=== PATIENT | male | born 1990 | race Caucasian/White ===

== ENCOUNTER 2016-10-05 09:30 | Emergency (ER) | payer BC, OTHER ==
[2016-10-05 09:45] VITALS: BP 128/54
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
[2016-10-05] MEDS ORDERED: methylPREDNISolone Acetate 80 MG/ML SDV IM ONE (09:47)
== END 2016-10-05 10:20 | disposition home or self-care (01) ==
LOC: LL.ED 09:30
DX: S30.0XXA Contusion of lower back and pelvis, initial encounter (principal); K21.9 Gastro-esophageal reflux disease without esophagitis; F17.210 Nicotine dependence, cigarettes, uncomplicated; Z71.6 Tobacco abuse counseling; V89.2XXA Person injured in unspecified motor-vehicle accident, traffic, initial encounter; Y93.89 Activity, other specified; Y92.009 Unspecified place in unspecified non-institutional (private) residence as the place of occurrence of the external cause
CPT/HCPCS: 96372; 99283; J1040

== ENCOUNTER 2017-10-26 19:21 | Emergency (ER) | payer BC, OTHER ==
[2017-10-26 19:25] VITALS: BP 146/77
[2017-10-26] MEDS ORDERED: Sodium Chloride 0.9% 1,000 ML IV SCH (19:45)
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
[2017-10-26] MEDS ORDERED: HYDROmorphone 1 MG/ML Syringe IVPUSH ONE (19:52)
[2017-10-26] MEDS ORDERED: Iopamidol 612 MG/ML 100 ML Bottle IVPUSH ONE (19:59)
[2017-10-26 20:01] LABS: CHLORIDE,CL 106 mmol/L (98-107); SODIUM,NA 141 mmol/L (136-145)
[2017-10-26] MEDS ORDERED: Pantoprazole 40 MG Vial IVPUSH ONE (20:07)
[2017-10-26] MEDS: Sodium Chloride 0.9% 10 ML Syringe FLUSH PRN ×3 (20:10→20:14)
== END 2017-10-26 21:45 | disposition home or self-care (01) ==
LOC: LL.ED 19:21
DX: K81.9 Cholecystitis, unspecified (principal); Z91.030 Bee allergy status; Z79.899 Other long term (current) drug therapy
CPT/HCPCS: 36415; 74177; 80053; 85025; 96361; 96374; 96375; 99284; C9113; J1170; J7030; J7050; Q9967

== ENCOUNTER 2017-10-28 06:05 | Day surgery (SDC) | payer BC, OTHER ==
[~2017-10-28 06:05] MED LIST: Lactated Ringers 1,000 ML IV SCH; Sodium Chloride 0.9% 10 ML Syringe FLUSH PRN
[2017-10-28] MEDS ORDERED: fentaNYL 250 MCG/5 ML SDV ONE ×2 (06:21→06:59)
[2017-10-28] MEDS ORDERED: Midazolam 1 MG/ML 2 ML SDV ONE ×2 (06:21→06:59)
[2017-10-28] MEDS ORDERED: Propofol 200 MG/20 ML SDV ONE ×3 (06:22→07:29)
[2017-10-28] MEDS ORDERED: Rocuronium 100 MG/10 ML MDV ONE (06:59)
[2017-10-28] MEDS ORDERED: ceFAZolin 1 GM Vial ONE (06:59)
[2017-10-28] MEDS ORDERED: Ondansetron 4 MG/2 ML SDV ONE (06:59)
[2017-10-28] MEDS ORDERED: Neostigmine Methylsulfate 10 MG/10 ML MDV ONE (06:59)
[2017-10-28] MEDS ORDERED: Glycopyrrolate 0.2 MG/ML SDV ONE (06:59)
[2017-10-28] MEDS ORDERED: Succinylcholine 200 MG/10 ML MDV ONE (06:59)
[2017-10-28] MEDS ORDERED: Dexamethasone 10 MG/ML SDV ONE (06:59)
--- NOTE | 2017-10-28 07:14 | PCM.PN ---
- General Info Date of Service: 10/28/17 - Review of Systems Systems Review Comment:: 27-year-old male with history of recurring episodes of upper abdominal pain. He has recent ultrasound findings of cholelithiasis. He comes today for cholecystectomy. He is medically stable to proceed today with no recent significant changes in his health status since his recent history and physical. I have discussed the proposed cholecystectomy with the patient. Expectations and anticipated postop instructions are reviewed. I reviewed with him the indications and risks such as but not limited to bleeding infection organ injury and also discussed was possible need for laparotomy. The patient's questions were answered. He agrees to proceed. - Patient Data Vitals - Most Recent: Last Vital Signs Temp 99.0 F 10/28/17 06:38 Pulse 64 10/28/17 06:38 Resp 16 10/28/17 06:38 BP 138/78 10/28/17 06:38 Pulse Ox 100 10/28/17 06:38 Weight - Most Recent: 87.861 kg Med Orders - Current: Current Medications Lactated Ringer's (Ringers, Lactated) 1,000 mls @ 125 mls/hr IV ASDIRECTED MATIAS Sodium Chloride (Saline Flush) 10 ml FLUSH ASDIRECTED PRN PRN Reason: Keep Vein Open Discontinued Medications Fentanyl (Sublimaze) Confirm Administered Dose 250 mcg .ROUTE .STK-MED ONE Stop: 10/28/17 06:22 Midazolam HCl (Versed 1 Mg/Ml) Confirm Administered Dose 2 mg .ROUTE .STK-MED ONE Stop: 10/28/17 06:22 Propofol (Diprivan 20 Ml) Confirm Administered Dose 200 mg .ROUTE .STK-MED ONE Stop: 10/28/17 06:23 - Problem List Review Problem List Initiated/Reviewed/Updated: Yes - My Orders Last 24 Hours: My Active Orders 10/28/17 06:00 Patient Status [ADT] Routine Peripheral IV Care [RC] . DIRECTED Verify Patient Consent Obtain [RC] ASDIRECTED Lactated Ringers [Ringers, Lactated] 1,000 ml IV ASDIRECTED Sodium Chloride 0.9% [Saline Flush] 10 ml FLUSH ASDIRECTED PRN Peripheral IV Insertion Adult [OM.PC] Routine Sequential Compression Device [OM.PC] Routine - Assessment Assessment:: symptomatic cholelithiasis - Plan Plan:: cholecystectomy
[2017-10-28] MEDS ORDERED: Bupivacaine 0.25%/EPINEPHrine 1:200,000 30 ML SDV INFILT ONE (07:25)
[2017-10-28] MEDS ORDERED: fentaNYL 100 MCG/2 ML SDV IVPUSH PRN (08:02)
[2017-10-28] MEDS ORDERED: Ondansetron 4 MG/2 ML SDV IVPUSH PRN (08:02)
--- NOTE | 2017-10-28 09:02 | PCM.OPNOTE ---
- General Post-Op/Procedure Note Date of Surgery/Procedure: 10/28/17 Operative Procedure(s): Laparoscopic cholecystectomy Findings: multiple gallstones Pre Op Diagnosis: symptomatic cholelithiasis Post-Op Diagnosis: Same Anesthesia Technique: MAC Primary Surgeon: Eduar Staley Pathology: gallbladder Output, Urine Amount: 0 EBL in mLs: 25 Complications: None Condition: Good Free Text/Narrative:: Intake & Output 10/27/17 10/28/17 10/28/17 22:59 06:59 14:59 Intake Total 1200 Balance 1200
[2017-10-28 10:24] VITALS: BP 145/78
--- NOTE | 2017-10-28 13:53 | OR ---
Date of Procedure: 10/28/2017 PREOPERATIVE DIAGNOSIS: Symptomatic cholelithiasis. POSTOPERATIVE DIAGNOSIS: Symptomatic cholelithiasis. OPERATION PERFORMED: Laparoscopic cholecystectomy. INDICATIONS FOR SURGERY: This 27-year-old male has a longstanding history of recurring episodes of upper abdominal pain. He recently presented to the Emergency Room with these symptoms and workup identified cholelithiasis, which is felt to be the source of his symptoms. He comes for cholecystectomy. FINDINGS: The patient's gallbladder did not appear acutely inflamed, but did contain multiple dark montgomery stones. The adjacent liver and other intra-abdominal organs appeared normal as viewed laparoscopically. DESCRIPTION OF PROCEDURE: The patient was taken to the operating room. He was given general endotracheal anesthesia and the abdomen was sterilely prepped and draped. A supraumbilical stab wound incision was made. Through this, a Veress needle was inserted and pneumoperitoneum via this needle to a pressure of 15 mmHg was achieved with carbon dioxide. The Veress needle was then replaced with a 12-mm trocar into which the 10-mm zero-degree laparoscopic camera was inserted. Under direct visualization, 5-mm trocars were placed in the subxiphoid midline and in 2 areas of the right abdomen. All trocar sites were infiltrated with Marcaine prior to incision. Intra-abdominal inspection was carried out and attention was turned to the gallbladder. It was secured with grasping forceps placed through the lateral trocars and retracted superiorly and anteriorly. Fatty tissue overlying the cystic artery and cystic duct was then carefully cleared exposing these structures. There were multiple branches of the cystic artery, and in order to clearly define these, the cystic duct was divided first. It is skeletonized, milked, and after its identity had been clearly identified including its junction with the gallbladder, the cystic duct was doubly clipped and divided near the gallbladder with great care being used to avoid any possible injury or compromise to the common bile duct. Additional exploration in the triangle of Calot then identified the multiple branches of the cystic artery and these were doubly clipped and divided. Additional dissection with the cautery then was used to begin freeing the gallbladder from the undersurface of the liver. An additional artery coursing into the undersurface of the gallbladder was identified during this dissection and additional clips were placed to control this artery. The gallbladder dissection was then completed, it from the liver using the hook cautery device. Once the gallbladder had been completely freed, it was extracted through the umbilical trocar site. This did require opening the gallbladder extra- abdominally and extracting the stones before the gallbladder could be withdrawn through the trocar site. Re-inspection of the gallbladder bed was then performed. Copious irrigation of the operative region carried out. Cautery was used to assure good hemostasis of the gallbladder bed. Once this had been achieved and with no sign of bleeding or any other complication, the trocars were removed under direct visualization and then pneumoperitoneum was evacuated. The fascia of the umbilical trocar site was closed with a [id number] 0 Vicryl suture. Wounds were irrigated with Betadine and saline solution. The skin incisions were approximated with interrupted 4-0 Vicryl in a subcuticular stitch, Steri-Strips, and benzoin were applied, followed by antibiotic ointment and sterile dressings. The patient was then awakened, extubated, and taken from the operating room in satisfactory condition. ESTIMATED BLOOD LOSS: 25 mL. COMPLICATIONS: None. PROGNOSIS: Good. ZENAIDA Staley MD /[id number]
== END 2017-10-28 12:15 | disposition home or self-care (01) ==
LOC: LL.SDS 06:05
PROVIDERS: ATTEND Surgery
DX: K80.10 Calculus of gallbladder with chronic cholecystitis without obstruction (principal); F17.210 Nicotine dependence, cigarettes, uncomplicated; K21.9 Gastro-esophageal reflux disease without esophagitis; Z79.899 Other long term (current) drug therapy
CPT/HCPCS: J0330; J0690; J1100; J2250; J2405; J2704; J2710; J3010; J7120

== ENCOUNTER 2019-02-17 10:13 | Emergency (ER) | payer BC ==
[2019-02-17 10:24] VITALS: BP 139/76; PULSE 98
--- NOTE | 2019-02-17 10:45 | EDM.PDOC ---
ED HPI GENERAL MEDICAL PROBLEM - General Chief Complaint: Gastrointestinal Problem Stated Complaint: flu Time Seen by Provider: 02/17/19 10:40 History Limitations: Reports: No Limitations - History of Present Illness INITIAL COMMENTS - FREE TEXT/NARRATIVE: Patient is a 28-year-old with seen with chief complaint of nausea and diarrhea flulike symptoms he states he woke up with these symptoms his whole family was been sick came in for evaluation Onset: Today, Sudden Duration: Hour(s):, Constant Location: Reports: Abdomen Severity: Moderate Improves with: Reports: None Worsens with: Reports: None Context: Reports: Other (6) Associated Symptoms: Reports: No Other Symptoms Abdomen Pain Score (Numeric/FACES): 3 - Related Data Allergies Allergy/AdvReac Type Severity Reaction Status Date / Time bee venom protein (honey bee) Allergy Hives Verified 02/22/18 21:10 Home Meds: Home Meds ALPRAZolam [Alprazolam] 1 tab PO DAILY PRN 02/22/18 [History] Albuterol [Ventolin HFA] 1 puff INH Q4H PRN #1 puff 02/22/18 [Rx] Azithromycin [Zithromax] 500 mg PO DAILY #6 tab 02/22/18 [Rx] Ketorolac [Toradol] 10 mg PO TID PRN #10 tab 02/22/18 [Rx] traMADol [Ultram] 50 mg PO Q6H PRN #15 tab 02/22/18 [Rx] Past Medical History HEENT History: Reports: Other (See Below) Other HEENT History: right mastoid, right EAC, and basillar skull fx Gastrointestinal History: Reports: GERD, Other (See Below) Other Gastrointestinal History: splenomegaly Musculoskeletal History: Reports: Arthritis, Fracture, Osteoarthritis, Other ( See Below) Other Musculoskeletal History: Skull fractures as above Neurological History: Reports: Head Trauma Psychiatric History: Reports: Anxiety Hematologic History: Reports: None Immunologic History: Reports: None Oncologic (Cancer) History: Reports: None - Infectious Disease History Infectious Disease History: Reports: Mononucleosis - Past Surgical History GI Surgical History: Reports: Cholecystectomy - Past Imaging History Past Imaging History: Reports: CAT Scan (CT of the head, maxillofacial, chest, C -spine, and abdominal and pelvic regions on 09/18/12), HIDA Scan (01/29/11), Ultrasound (Abdominal ultrasound on 01/15/11, ultrasound of the spleen on 09/09/11) Social & Family History - Family History Cardiac: Reports: None Respiratory: Reports: None GI: Reports: None - Tobacco Use Smoking Status *Q: Current Every Day Smoker Years of Tobacco use: 12 Packs/Tins Daily: 0.5 Second Hand Smoke Exposure: Yes - Caffeine Use Caffeine Use: Reports: Soda Other Caffeine Use: caffeine free soda, energy drinks occasionally Caffeine Use Comment: 3-4 daily - Alcohol Use Days Per Week of Alcohol Use: 1 Number of Drinks Per Day: 6 Total Drinks Per Week: 6 Date of Last Drink: 01/27/19 - Recreational Drug Use Recreational Drug Use: No - Living Situation & Occupation Living situation: Reports: with Significant Other Occupation: Employed ([employer]) ED ROS GENERAL - Review of Systems Review Of Systems: See Below Constitutional: Reports: No Symptoms HEENT: Reports: No Symptoms Respiratory: Reports: No Symptoms Cardiovascular: Reports: No Symptoms Endocrine: Reports: No Symptoms GI/Abdominal: Reports: Abdominal Pain, Diarrhea, Nausea, Vomiting Musculoskeletal: Reports: No Symptoms Skin: Reports: No Symptoms Neurological: Reports: No Symptoms Psychiatric: Reports: No Symptoms Hematologic/Lymphatic: Reports: No Symptoms ED EXAM, GI/ABD - Physical Exam Exam: See Below Exam Limited By: No Limitations General Appearance: Alert, WD/WN, No Apparent Distress Eyes: Bilateral: Normal Appearance, EOMI Ears: Normal External Exam, Normal Canal, Hearing Grossly Normal, Normal TMs Nose: Normal Inspection, Normal Mucosa, No Blood Throat/Mouth: Normal Inspection, Normal Lips, Normal Teeth, Normal Gums, Normal Oropharynx, Normal Voice, No Airway Compromise Head: Atraumatic, Normocephalic Neck: Normal Inspection, Supple, Non-Tender, Full Range of Motion Respiratory/Chest: No Respiratory Distress, Lungs Clear, Normal Breath Sounds, No Accessory Muscle Use, Chest Non-Tender Cardiovascular: Normal Peripheral Pulses, Regular Rate, Rhythm, No Edema, No Gallop, No JVD, No Murmur, No Rub GI/Abdominal Exam: Tender Back Exam: Normal Inspection, Full Range of Motion, NT Extremities: Normal Inspection, Normal Range of Motion, Non-Tender, Normal Capillary Refill, No Pedal Edema Neurological: Alert, Oriented, CN II-XII Intact, Normal Cognition, Normal Gait, Normal Reflexes, No Motor/Sensory Deficits Psychiatric: Normal Affect, Normal Mood Skin Exam: Warm, Dry, Intact, Normal Color, No Rash Course - Vital Signs Last Recorded V/S: Last Vital Signs Temp 97.8 F 02/17/19 10:15 Pulse 98 02/17/19 10:15 Resp 20 02/17/19 10:15 BP 139/76 02/17/19 10:15 Pulse Ox 99 02/17/19 10:15 Departure - Departure Time of Disposition: 10:43 Disposition: Home, Self-Care 01 Clinical Impression: Gastroenteritis - Discharge Information *PRESCRIPTION DRUG MONITORING PROGRAM REVIEWED*: No *COPY OF PRESCRIPTION DRUG MONITORING REPORT IN PATIENT THELMA: No Referrals: Mehrdad Taylor, PANaylaC [Primary Care Provider] - Care Plan Goals: He started on Sudafed 1 tablet every 6 hours as needed for nausea also in Imodium 1 tablet every 6 hours if diarrhea
== END 2019-02-17 11:15 | disposition home or self-care (01) ==
LOC: LL.ED 10:13
DX: K52.9 Noninfective gastroenteritis and colitis, unspecified (principal); F41.9 Anxiety disorder, unspecified; Z90.49 Acquired absence of other specified parts of digestive tract; F17.210 Nicotine dependence, cigarettes, uncomplicated; Z91.030 Bee allergy status; Z79.899 Other long term (current) drug therapy
CPT/HCPCS: 99283

== ENCOUNTER 2019-02-25 16:31 | Emergency (ER) | payer BC ==
[2019-02-25] MEDS ORDERED: Sodium Chloride 0.9% 10 ML Syringe FLUSH PRN (16:47)
[2019-02-25] MEDS: Ondansetron 4 MG/2 ML SDV IVPUSH ONE (16:57)
[2019-02-25] MEDS: Morphine 2 MG/ML Syringe IVPUSH ONE ×2 (16:57→20:41)
[2019-02-25 17:16] VITALS: BP 143/68; PULSE 77
[2019-02-25] MEDS: Lidocaine 2% Viscous Solution 15 ML Cup PO ONE (18:41)
[2019-02-25] MEDS: Diphtheria,Pertussis(Acell),Tetanus Vaccine 0.5 ML SDV IM ONE (19:00)
[2019-02-25] MEDS: Bupivacaine 0.5% 10 ML SDV INJECT ONE (19:50)
--- NOTE | 2019-02-25 20:28 | EDM.PDOC ---
ED HPI GENERAL MEDICAL PROBLEM - General Chief Complaint: Laceration Stated Complaint: lip laceration, Broken teeth Time Seen by Provider: 02/25/19 16:45 Source of Information: Reports: Patient History Limitations: Reports: No Limitations - History of Present Illness INITIAL COMMENTS - FREE TEXT/NARRATIVE: Patient sustained injury to upper lip and teeth when he was hit in that area by a metal antonio he was using to try to remove tires from wheels. Only complaint is injury to incisor teeth and upper lip laceration. No other areas of trauma per patient. Has pain around mouth but denies other pain. No visual changes. No neck pain. Face Pain Score (Numeric/FACES): 5 - Related Data Allergies Allergy/AdvReac Type Severity Reaction Status Date / Time bee venom protein (honey bee) Allergy Hives Verified 02/25/19 17:17 Home Meds: Home Meds . [No Known Home Meds] 02/25/19 [History] Past Medical History HEENT History: Reports: Other (See Below) Other HEENT History: right mastoid, right EAC, and basillar skull fx Gastrointestinal History: Reports: GERD, Other (See Below) Other Gastrointestinal History: splenomegaly Musculoskeletal History: Reports: Arthritis, Fracture, Osteoarthritis, Other ( See Below) Other Musculoskeletal History: Skull fractures as above Neurological History: Reports: Head Trauma Psychiatric History: Reports: Anxiety Hematologic History: Reports: None Immunologic History: Reports: None Oncologic (Cancer) History: Reports: None - Infectious Disease History Infectious Disease History: Reports: Mononucleosis - Past Surgical History GI Surgical History: Reports: Cholecystectomy - Past Imaging History Past Imaging History: Reports: CAT Scan (CT of the head, maxillofacial, chest, C -spine, and abdominal and pelvic regions on 09/18/12), HIDA Scan (01/29/11), Ultrasound (Abdominal ultrasound on 01/15/11, ultrasound of the spleen on 09/09/11) Social & Family History - Family History Family Medical History: Noncontributory Cardiac: Reports: None Respiratory: Reports: None GI: Reports: None - Tobacco Use Smoking Status *Q: Current Every Day Smoker Years of Tobacco use: 12 Packs/Tins Daily: 0.5 - Caffeine Use Caffeine Use: Reports: Soda Other Caffeine Use: caffeine free soda, energy drinks occasionally Caffeine Use Comment: 3-4 daily - Recreational Drug Use Recreational Drug Use: No - Living Situation & Occupation Living situation: Reports: with Significant Other Occupation: Employed ([employer]) ED ROS GENERAL - Review of Systems Review Of Systems: ROS reveals no pertinent complaints other than HPI. ED EXAM, GENERAL - Physical Exam Exam: See Below Exam Limited By: No Limitations General Appearance: Alert, Anxious Eye Exam: Bilateral Eye: EOMI, PERRL Ears: Normal External Exam Nose: Normal Inspection. No: Nasal Deformity, Nasal Swelling, Nasal Drainage Throat/Mouth: Normal Voice, Other (fractured left upper and lower incisors, lacerated gum tissue above upper incisor on left, inner and outer upper left lip lacerations. ) Head: Facial Swelling (lip area). No: Sinus Tenderness Neck: Normal Inspection, Supple Respiratory/Chest: No Respiratory Distress Cardiovascular: Regular Rate, Rhythm Extremities: Normal Inspection, Normal Range of Motion Neurological: Alert, Oriented, CN II-XII Intact, Normal Cognition, Normal Gait Psychiatric: Anxious Skin Exam: Warm, Dry, Wound/Incision ED GENERAL MEDICAL PROCEDURES - Laceration/Wound Repair Left Upper Anterior Mouth Lac/wound length in cm: 1.5 Appearance: Subcutaneous, Irregular, Clean Distal NVT: Neuro & Vascular Intact Anesthetic Type: Local Local Anesthesia - Lidocaine (Xylocaine): 0.5% Plain Local Anesthetic Volume: 3cc Skin Prep: Saline Exploration/Debridement/Repair: Wound Explored, In a Bloodless Field, Explored to Base, No Foreign Material Found Suture Size: Other (three 4.0 and two 5.0 sutures placed) # of Sutures: 5 Suture Type: Interrupted Sterile Dressing Applied: None Tetanus Status Addressed: Yes Complications: No Left Upper Posterior Mouth Lac/wound length in cm: 1.2 Appearance: Subcutaneous, Linear, Clean Distal NVT: Neuro & Vascular Intact Anesthetic Type: Local Local Anesthetic Volume: 2cc Skin Prep: Saline Exploration/Debridement/Repair: Wound Explored, In a Bloodless Field, Explored to Base Closed with: Sutures Suture Size: 4-0 # of Sutures: 4 Suture Type: Prolene Drain Placement: No Sterile Dressing Applied: None Tetanus Status Addressed: Yes Complications: No Course - Vital Signs Last Recorded V/S: Last Vital Signs Temp 36.9 C 02/25/19 17:10 Pulse 77 02/25/19 17:10 Resp 20 02/25/19 17:10 BP 143/68 H 02/25/19 17:10 Pulse Ox 98 02/25/19 17:10 - Orders/Labs/Meds Orders: Active Orders 24 hr Category Date Time Status Vaccines to be Administered [RC] PER UNIT ROUTINE Care 02/25/19 18:56 Ordered Max Facial Sinus wo Cont [CT] Stat Exams 02/25/19 16:48 Taken Sodium Chloride 0.9% [Saline Flush] Med 02/25/19 16:47 Active 10 ml FLUSH ASDIRECTED PRN Saline Lock Insert [OM.PC] Routine Oth 02/25/19 16:47 Ordered Medication Orders Sodium Chloride (Saline Flush) 10 ml FLUSH ASDIRECTED PRN PRN Reason: Keep Vein Open Meds: Medications Generic Name Dose Route Start Last Admin Trade Name Freq PRN Reason Stop Dose Admin Sodium Chloride 10 ml 02/25/19 16:47 Saline Flush FLUSH ASDIRECTED PRN Keep Vein Open Discontinued Medications Generic Name Dose Route Start Last Admin Trade Name Freq PRN Reason Stop Dose Admin Bupivacaine HCl 10 ml 02/25/19 19:39 02/25/19 19:50 Sensorcaine-Mpf 0.5% INJECT 02/25/19 19:40 10 ml ONETIME ONE Administration Diphtheria/Tetanus/Acell Pertussis 0.5 ml 02/25/19 18:56 02/25/19 19:00 Adacel IM 02/25/19 18:57 0.5 ml .ONCE ONE Administration Ketorolac Tromethamine 30 mg 02/25/19 20:21 02/25/19 20:40 Toradol IVPUSH 02/25/19 20:22 30 mg ONETIME ONE Administration Lidocaine HCl 15 ml 02/25/19 18:08 02/25/19 18:41 Xylocaine 2% Viscous PO 02/25/19 18:09 15 ml ONETIME ONE Administration Lidocaine HCl 5 ml 02/25/19 18:09 02/25/19 18:41 Xylocaine-Mpf 1% INJECT 02/25/19 18:10 5 ml ONETIME ONE Administration Morphine Sulfate 4 mg 02/25/19 16:47 02/25/19 16:57 Morphine IVPUSH 02/25/19 16:48 4 mg ONETIME ONE Administration Morphine Sulfate 2 mg 02/25/19 20:21 02/25/19 20:41 Morphine IVPUSH 02/25/19 20:22 2 mg ONETIME ONE Administration Ondansetron HCl 4 mg 02/25/19 16:47 02/25/19 16:57 Zofran IVPUSH 02/25/19 16:48 4 mg ONETIME ONE Administration - Re-Assessments/Exams Free Text/Narrative Re-Assessment/Exam: CT performed to rule out fracture. No fracture identified. Topical numbing performed to help with anesthesia. Patient wanted to go outside several times to smoke, causing further delay to performing closure. Laceration repaired. Tetanus updated. Lip anesthesia using local blocks. Laceration repaired. Call placed to [facility] and spoke to oral/maxillofacial surgeon, to review patient's injury and interventions performed here. He was supportive of care/treatment given at our facility and he recommended that the patient see a local dentist on Wednesday in order to develop a plan to fix the fractured teeth. He is willing to see the patient over the weekend if worsening problems develop. Marcaine blocks were used to help achieve better pain control overnight. Patient given to-go bottles of Amox and Tramadol. Precautions reviewed. Work slip for [employer]. Departure - Departure Time of Disposition: 20:45 Disposition: Home, Self-Care 01 Condition: Good Clinical Impression: Dental trauma Qualifiers: Encounter type: initial encounter Qualified Code(s): S09.93XA - Unspecified injury of face, initial encounter Lip laceration Qualifiers: Encounter type: initial encounter Qualified Code(s): S01.511A - Laceration without foreign body of lip, initial encounter - Discharge Information *PRESCRIPTION DRUG MONITORING PROGRAM REVIEWED*: Not Applicable *COPY OF PRESCRIPTION DRUG MONITORING REPORT IN PATIENT THELMA: Not Applicable Instructions: Amoxicillin capsules or tablets, Mouth Laceration, [id number], Tramadol tablets, Tooth Injuries Referrals: PCP,Unknown [Primary Care Provider] - Forms: ED Department Discharge Additional Instructions: Follow up Wednesday with local dentist. Get evaluated. See what recommendations are made and if they need to refer you to another dental clinic for definitive care. OK to take Tylenol or Ibuprofen with the meds you received from the ER today. We spoke to at [facility]. He is an oral/facial specialist. He can evaluate your injuries over the weekend if you have worsening problems. Take the Amox every 12 hours for 3 days. The dentist may elect to extend coverage. Take the Tramadol once every 6 hours as needed for pain. Can extend [employer] work restrictions if needed on Wednesday as discussed once plan is in place. Sutures out Wednesday. - My Orders Last 24 Hours: My Active Orders 02/25/19 16:47 Sodium Chloride 0.9% [Saline Flush] 10 ml FLUSH ASDIRECTED PRN Saline Lock Insert [OM.PC] Routine 02/25/19 16:48 Max Facial Sinus wo Cont [CT] Stat 02/25/19 18:56 Vaccines to be Administered [RC] PER UNIT ROUTINE - Assessment/Plan Last 24 Hours: My Active Orders 02/25/19 16:47 Sodium Chloride 0.9% [Saline Flush] 10 ml FLUSH ASDIRECTED PRN Saline Lock Insert [OM.PC] Routine 02/25/19 16:48 Max Facial Sinus wo Cont [CT] Stat 02/25/19 18:56 Vaccines to be Administered [RC] PER UNIT ROUTINE
[2019-02-25] MEDS: Ketorolac 30 MG/ML SDV IVPUSH ONE (20:40)
== END 2019-02-25 21:05 | disposition home or self-care (01) ==
LOC: LL.ED 16:31
DX: S01.511A Laceration without foreign body of lip, initial encounter (principal); S01.512A Laceration without foreign body of oral cavity, initial encounter; F17.210 Nicotine dependence, cigarettes, uncomplicated; Z23 Encounter for immunization; Z91.030 Bee allergy status; W22.8XXA Striking against or struck by other objects, initial encounter; Y93.89 Activity, other specified; Y92.009 Unspecified place in unspecified non-institutional (private) residence as the place of occurrence of the external cause
CPT/HCPCS: 12011; 12013; 70486; 90715; 96374; 96375; 96376; 99283-25; A9270-GY; J1885; J2001; J2270; J2405; J3490

== ENCOUNTER 2021-12-13 09:30 | Emergency (ER) | payer BC ==
[2021-12-13 09:44] VITALS: BP 128/76; PULSE 90
[2021-12-13 10:29] LABS: CORONAVIRUS COVID-19 NAA NEGATIVE (NEGATIVE)
[2021-12-13 10:30] LABS: RESPIRATORY SYNCYTIAL VIR NAA NEGATIVE (NEGATIVE)
== END 2021-12-13 10:30 | disposition home or self-care (01) ==
LOC: LL.ED 09:30
DX: J02.0 Streptococcal pharyngitis (principal); F17.210 Nicotine dependence, cigarettes, uncomplicated; Z91.030 Bee allergy status; Z20.822 Contact with and (suspected) exposure to COVID-19
CPT/HCPCS: 0241U; 87430; 99283

== ENCOUNTER 2023-10-02 09:24 | Emergency (ER) | payer BC ==
[2023-10-02 09:39] VITALS: BP 136/69; PULSE 82
[2023-10-02] MEDS: Bupivacaine 0.25% 10 ML SDV INJECT ONE (10:13)
[2023-10-02] MEDS: Lidocaine 1% 5 ML VIAL INJECT ONE (10:13)
[2023-10-02] MEDS: Ondansetron 4 MG Tab.DIS PO ONE (10:35)
[2023-10-02] MEDS: Bacitracin Oint 1 GM U/D Packet TOP ONE (11:09)
[2023-10-02] MEDS: Take Home: Cephalexin 500 MG Cap, 6 Cap Pack PO ONE (11:18)
== END 2023-10-02 11:20 | disposition home or self-care (01) ==
LOC: LL.ED 09:24
DX: S67.193A Crushing injury of left middle finger, initial encounter (principal); F17.210 Nicotine dependence, cigarettes, uncomplicated; Z91.030 Bee allergy status; Z79.899 Other long term (current) drug therapy; Z90.49 Acquired absence of other specified parts of digestive tract; W23.1XXA Caught, crushed, jammed, or pinched between stationary objects, initial encounter
CPT/HCPCS: 11760; 73140-F2; 99283-25; A9270-GY; J0665; J3490